=== PATIENT | female | born 1955 | race African-American/Black ===

== ENCOUNTER 2016-06-13 13:39 | Inpatient (IN) | payer OTHER ==
[~2016-06-13] VITALS: Ht 165.1 cm; Wt 111.1 kg
[2016-06-13] MEDS: SODIUM CHLORIDE 0.9% INJ 3ML FLUSH IVF SCH (01:20)
[~2016-06-13 13:39] MED LIST: ASPI-1035 PO; CIPR-263 PO; CLON0.2T PO; DIGO125T82 PO; FURO40TA5 PO; HYDR-4134 PO; ISOS30TA6 PO; LAMO100T PO; LISI1TAB11 PO; METO-298 PO; RISP3 PO
[2016-06-13] MEDS ORDERED: ONDANSETRON HCL 4MG/2ML VIAL IV STA (14:24)
[2016-06-13] MEDS ORDERED: ASPIRIN 81MG TABLET PO STA (14:24)
[2016-06-13] MEDS ORDERED: FUROSEMIDE 40MG/4ML VIAL IV STA (14:24)
[2016-06-13] MEDS ORDERED: MORPHINE SULFATE 4 MG/ML CPJ (NOT FOR IM USE) IV STA (14:24)
[2016-06-13 15:10] LABS: BASOPHILS % 0.5 % (0.0-2.0); EOSINOPHILS % 1.3 % (0.0-5.0); HEMATOCRIT. 46.3 % (36.0-48.0); HEMOGLOBIN. 14.9 g/dL (12.0-16.0); MEAN CORPUSCULAR HEMOGLOBIN 29.6 pg (28.0-32.0); MEAN CORPUSCULAR HGB CONC 32.1 g/dL (31.0-37.0); MEAN CORPUSCULAR VOLUME 92.3 fL (81.0-99.0); MEAN PLATELET VOLUME 9.3 fl (7.4-10.4); MONOCYTES % 12.6 % (2.0-8.0); NEUTROPHILS % 61.6 % (40.0-76.0); PLATELET 267 x1000/uL (130-400); RED BLOOD CELL COUNT 5.02 mill/uL (4.2-5.4); WHITE BLOOD COUNT 5.5 x1000/uL (4.5-11.0)
[2016-06-13 15:11] LABS: INR 1.2; PROTHROMBIN TIME 12.7 sec
[2016-06-13 15:12] LABS: ANION GAP 12; CARBON DIOXIDE 29 mEq/L (21-32); CHLORIDE 103 mEq/L (98-107); INDEX HEMOLYSI 1 (1-3); INDEX ICTERIC 1 (1-4); INDEX LIPEMIC 1 (1-3); UREA NITROGEN BLOOD 18 mg/dL (7-21)
[2016-06-13 15:20] LABS: ALANINE AMINOTRANSFERASE 66 IU/L (13-61); CREATINE KINASE 103 IU/L (26-192); LIPASE 106 IU/L (73-393); NT PRO B-TYPE NATRIURETIC PEP 3221 pg/mL (5-125); TROPONIN I 0.04 ng/mL (0.00-0.04); eGFR > 60 mL/min (>60)
[2016-06-13 15:25] LABS: THYROID STIMULATING HORMONE 0.85 uIU/mL (0.36-3.74)
[2016-06-13] MEDS ORDERED: PIPERACILLIN/TAZ 3.375G PREMIX 50 ML IV ONE (16:45)
[2016-06-13 17:40] VITALS: BP 119/84
[2016-06-13] MEDS ORDERED: CHOL100026 PO (19:03)
[2016-06-13] MEDS ORDERED: SERT25TA74 PO (19:03)
[2016-06-13 20:00] VITALS: BP_SYST 105; BP_DIAS 70; BP_DIAS 72
[2016-06-13] MEDS ORDERED: ONDANSETRON HCL 4MG/2ML VIAL IV PRN (20:45)
[2016-06-13] MEDS ORDERED: LORAZEPAM 2MG/ML CPJ IV PRN (20:45)
[2016-06-13] MEDS ORDERED: NA PHOS,M-B/NA PHOS,DI-BA ENEMA 118ML PR PRN (20:45)
[2016-06-13] MEDS ORDERED: HYDROCODONE/ACETAMINOPHEN 5/325MG TABLET PO PRN (20:45)
[2016-06-13] MEDS ORDERED: ACETAMINOPHEN 650MG SUPP PR PRN (20:45)
[2016-06-13] MEDS ORDERED: GUAIFENESIN 200MG/10ML SUGAR FREE UDC PO PRN (20:45)
[2016-06-13] MEDS ORDERED: MAGNESIUM/ALUMINUM HYDROXIDE/SIMETHICONE 30ML UDC PO PRN (20:45)
[2016-06-13] MEDS ORDERED: ACETAMINOPHEN 650MG/20.3ML UDC GT PRN (20:45)
[2016-06-13] MEDS ORDERED: DIPHENHYDRAMINE 50MG/ML VIAL IV PRN (20:45)
[2016-06-13] MEDS ORDERED: IPRATROPIUM/ALBUTEROL 0.5-3(2.5)MG/3ML NEB INH PRN (20:45)
[2016-06-13] MEDS ORDERED: ACETAMINOPHEN 325MG TABLET PO PRN (20:45)
[2016-06-13] MEDS ORDERED: CLONIDINE 0.1MG TABLET PO PRN (20:45)
[2016-06-13] MEDS: CLONIDINE 0.2MG TABLET PO SCH (21:47)
[2016-06-13] MEDS: ENOXAPARIN 30MG/0.3ML SYR SUBCUT SCH (21:47)
[2016-06-13 23:24] LABS: TROPONIN I 0.04 ng/mL (0.00-0.04)
[2016-06-13] MEDS ORDERED: DEXTROSE 50% WATER 50ML SYRINGE IV PRN (23:45)
[2016-06-14] VITALS: BP 113/78
[2016-06-14 04:00] VITALS: BP 120/75
[2016-06-14 04:56] LABS: CLARITY URINE CLEAR (CLEAR); COLOR URINE YELLOW (YELLOW); GLUCOSE URINE NEGATIVE (NEGATIVE); KETONES URINE NEGATIVE (NEGATIVE); LEUKOCYTE ESTERASE URINE TRACE (NEGATIVE); NITRITE URINE NEGATIVE (NEGATIVE); OCCULT BLOOD URINE 3+ (NEGATIVE); PROTEIN URINE 1+ (NEGATIVE); SPECIFIC GRAVITY URINE 1.014 (1.005-1.030)
[2016-06-14 05:45] LABS: *AMPHETAMINES SCREEN URINE NEGATIVE (NEGATIVE); *BARBITURATES SCREEN URINE NEGATIVE (NEGATIVE); *BENZODIAZEPINES SCREEN URINE NEGATIVE (NEGATIVE); *COCAINE SCREEN URINE NEGATIVE (NEGATIVE); CANNABINOID URINE SCREEN NEGATIVE (NEGATIVE); ECSTASY MDMA SCREEN URINE NEGATIVE (NEGATIVE); METHADONE URINE SCREEN NEGATIVE (NEGATIVE); OPIATES URINE SCREEN PRESUMTIVE POSITIVE (NEGATIVE); PHENCYCLIDINE URINE SCREEN NEGATIVE (NEGATIVE)
[2016-06-14] MEDS: BLOOD SUGAR DIAGNOSTIC STRIP TEST SCH ×4 (05:46→21:15)
[2016-06-14] MEDS: CLONIDINE 0.2MG TABLET PO SCH ×3 (05:50→21:16)
[2016-06-14 06:50] LABS: BASOPHILS % 0.5 % (0.0-2.0); EOSINOPHILS % 1.9 % (0.0-5.0); HEMATOCRIT. 45.4 % (36.0-48.0); HEMOGLOBIN. 14.4 g/dL (12.0-16.0); LYMPHOCYTES % 31.3 % (20.0-50.0); MEAN CORPUSCULAR HEMOGLOBIN 29.4 pg (28.0-32.0); MEAN CORPUSCULAR HGB CONC 31.8 g/dL (31.0-37.0); MEAN CORPUSCULAR VOLUME 92.4 fL (81.0-99.0); MEAN PLATELET VOLUME 9.3 fl (7.4-10.4); MONOCYTES % 13.7 % (2.0-8.0); NEUTROPHILS % 52.6 % (40.0-76.0); PLATELET 270 x1000/uL (130-400); RED BLOOD CELL COUNT 4.91 mill/uL (4.2-5.4); RED CELL DISTRIBUTION WIDTH 18.6 % (11.6-14.6); WHITE BLOOD COUNT 4.2 x1000/uL (4.5-11.0)
[2016-06-14 07:09] LABS: SQUAMOUS EPITHELIAL CELL URINE FEW /lpf (RARE/1+)
[2016-06-14 07:12] LABS: RBC URINE 15-25 /hpf (0-2)
[2016-06-14 07:17] LABS: WBC URINE 0-2 /hpf (0-2)
[2016-06-14 07:18] LABS: BACTERIA URINE TRACE; YEAST URINE 1+
[2016-06-14 08:00] VITALS: BP 106/65
[2016-06-14] MEDS: INSULIN LISPRO 100 UNITS/ML SUBCUT SCH ×4 (08:00→21:00)
[2016-06-14 08:10] LABS: ALANINE AMINOTRANSFERASE 62 IU/L (13-61); ALBUMIN 2.6 g/dL (3.4-5.0); ANION GAP 11; CALCIUM 8.5 mg/dL (8.5-10.1); CARBON DIOXIDE 29 mEq/L (21-32); CHLORIDE 105 mEq/L (98-107); CREATINE KINASE 54 IU/L (26-192); HDL CHOLESTEROL 38 mg/dL (40-59); INDEX HEMOLYSI 1 (1-3); INDEX ICTERIC 1 (1-4); INDEX LIPEMIC 1 (1-3); LDL CHOLESTEROL 119 mg/dL (5-100); TRIGLYCERIDE 83 mg/dL (0-150); UREA NITROGEN BLOOD 19 mg/dL (7-21); eGFR > 60 mL/min (>60)
[2016-06-14 08:13] LABS: TROPONIN I 0.04 ng/mL (0.00-0.04)
[2016-06-14] MEDS ORDERED: FUROSEMIDE 40MG/4ML VIAL IV SCH ×2 (09:00)
[2016-06-14] MEDS: ENOXAPARIN 30MG/0.3ML SYR SUBCUT SCH ×2 (09:12→21:14)
[2016-06-14] MEDS: SERTRALINE HCL 50MG TABLET PO SCH (09:13)
[2016-06-14] MEDS: ASPIRIN 81MG EC TABLET PO SCH (09:13)
[2016-06-14] MEDS: CHOLECALCIFEROL (D3) 1000 UNIT TABLET PO SCH (09:13)
[2016-06-14] MEDS: LAMOTRIGINE 100MG TABLET PO SCH ×2 (09:13→18:06)
[2016-06-14] MEDS: DIGOXIN 125MCG TABLET PO SCH (09:13)
[2016-06-14] MEDS: ISOSORBIDE DINITRATE 20MG TABLET PO SCH ×3 (09:14→18:06)
[2016-06-14] MEDS: FUROSEMIDE 40MG/4ML VIAL IVP SCH ×2 (10:00→18:06)
[2016-06-14 10:26] LABS: T4 FREE 1.25 ng/dL (0.76-1.46)
[2016-06-14 12:00] VITALS: BP 105/61
[2016-06-14] MEDS: SODIUM CHLORIDE 0.9% INJ 3ML FLUSH IVF SCH ×2 (13:00→21:16)
[2016-06-14 16:00] VITALS: BP 111/72
[2016-06-14] MEDS: LEVOFLOXACIN 750MG PREMIX 150 ML IV SCH (16:42)
[2016-06-14 17:18] LABS: CREATINE KINASE MB FRACTION 1.5 ng/mL (0.5-3.6); TROPONIN I 0.03 ng/mL (0.00-0.04)
[2016-06-14 20:00] VITALS: BP 127/66
[2016-06-14] MEDS: IPRATROPIUM/ALBUTEROL 0.5-3(2.5)MG/3ML NEB HHN SCH (20:54)
[2016-06-15] VITALS: BP 117/81
[2016-06-15] MEDS: IPRATROPIUM/ALBUTEROL 0.5-3(2.5)MG/3ML NEB HHN SCH ×4 (00:56→20:35)
[2016-06-15 02:19] LABS: CREATINE KINASE MB FRACTION 1.8 ng/mL (0.5-3.6); TROPONIN I 0.03 ng/mL (0.00-0.04)
[2016-06-15 04:00] VITALS: BP 96/64
[2016-06-15] MEDS: CLONIDINE 0.2MG TABLET PO SCH ×3 (06:00→22:00)
[2016-06-15] MEDS: SODIUM CHLORIDE 0.9% INJ 3ML FLUSH IVF SCH ×3 (06:21→21:08)
[2016-06-15] MEDS: FUROSEMIDE 40MG/4ML VIAL IVP SCH ×2 (06:54→18:52)
[2016-06-15] MEDS: BLOOD SUGAR DIAGNOSTIC STRIP TEST SCH ×4 (07:40→21:07)
[2016-06-15 08:00] VITALS: BP 114/71
[2016-06-15 09:21] LABS: CREATINE KINASE MB FRACTION 1.4 ng/mL (0.5-3.6); TROPONIN I 0.03 ng/mL (0.00-0.04)
[2016-06-15] MEDS: DIGOXIN 125MCG TABLET PO SCH (11:33)
[2016-06-15] MEDS: ASPIRIN 81MG EC TABLET PO SCH (11:33)
[2016-06-15] MEDS: CHOLECALCIFEROL (D3) 1000 UNIT TABLET PO SCH (11:33)
[2016-06-15] MEDS: ISOSORBIDE DINITRATE 20MG TABLET PO SCH ×3 (11:34→18:55)
[2016-06-15] MEDS: LAMOTRIGINE 100MG TABLET PO SCH ×2 (11:34→18:52)
[2016-06-15] MEDS: SERTRALINE HCL 50MG TABLET PO SCH (11:34)
[2016-06-15] MEDS: INSULIN LISPRO 100 UNITS/ML SUBCUT SCH ×4 (11:36→21:12)
[2016-06-15] MEDS: ENOXAPARIN 30MG/0.3ML SYR SUBCUT SCH ×2 (11:37→21:07)
[2016-06-15 12:00] VITALS: BP 106/106
[2016-06-15 15:36] LABS: BG BASE EXCESS 4.6 mmol/L (-2.0-2.0); BG CARBOXYHEMOGLOBIN 1.6 % (0.5-1.5); BG DEOXYHEMOGLOBIN 8.3 % (0.0-5.0); BG FRACTION INSPIRED OXYGEN 30; BG HCO3 ACT 30.3 mmol/L (22.0-26.0); BG METHEMOGLOBIN 0.3 % (0.0-1.5); BG OXYGEN SATURATION 91.5 % (92.0-98.5); BG OXYHEMOGLOBIN 89.8 % (94.0-97.0); BG PCO2 48.5 mmHg (35.0-45.0); BG PH 7.413 (7.350-7.450); BG PO2 63.3 mmHg (75.0-100.0); BG SAMPLE SITE RIGHT BRACHIAL; BG TOTAL HEMOGLOBIN 14.5 g/dL (12.0-18.0); BG VENT MODE NASAL CANNULA
[2016-06-15] MEDS: LEVOFLOXACIN 750MG PREMIX 150 ML IV SCH (15:36)
[2016-06-15 16:00] VITALS: BP 115/69
[2016-06-15 16:28] LABS: BASOPHILS % 0.2 % (0.0-2.0); HEMOGLOBIN. 13.6 g/dL (12.0-16.0); LYMPHOCYTES % 13.3 % (20.0-50.0); MEAN CORPUSCULAR HEMOGLOBIN 29.1 pg (28.0-32.0); MEAN CORPUSCULAR HGB CONC 31.6 g/dL (31.0-37.0); MEAN PLATELET VOLUME 9.6 fl (7.4-10.4); MONOCYTES % 12.2 % (2.0-8.0); NEUTROPHILS % 73.3 % (40.0-76.0); PLATELET 225 x1000/uL (130-400); RED BLOOD CELL COUNT 4.67 mill/uL (4.2-5.4); RED CELL DISTRIBUTION WIDTH 18.2 % (11.6-14.6); WHITE BLOOD COUNT 5.6 x1000/uL (4.5-11.0)
[2016-06-15] MEDS: CARVEDILOL 3.125 MG TABLET PO SCH (16:30)
[2016-06-15 16:42] LABS: ALBUMIN 2.6 g/dL (3.4-5.0); ANION GAP 12; CALCIUM 8.4 mg/dL (8.5-10.1); CARBON DIOXIDE 31 mEq/L (21-32); CHLORIDE 102 mEq/L (98-107); INDEX HEMOLYSI 1 (1-3); INDEX ICTERIC 1 (1-4); INDEX LIPEMIC 1 (1-3); UREA NITROGEN BLOOD 20 mg/dL (7-21)
[2016-06-15 16:46] LABS: ALANINE AMINOTRANSFERASE 43 IU/L (13-61); eGFR > 60 mL/min (>60)
[2016-06-15 20:00] VITALS: BP 98/66
[2016-06-16] VITALS: BP 106/60
[2016-06-16] MEDS: IPRATROPIUM/ALBUTEROL 0.5-3(2.5)MG/3ML NEB HHN SCH ×3 (02:41→15:11)
[2016-06-16 04:00] VITALS: BP 120/67
[2016-06-16] MEDS: CLONIDINE 0.2MG TABLET PO SCH ×2 (05:57→13:06)
[2016-06-16] MEDS: SODIUM CHLORIDE 0.9% INJ 3ML FLUSH IVF SCH ×2 (05:57→13:08)
[2016-06-16] MEDS: FUROSEMIDE 40MG/4ML VIAL IVP SCH ×2 (06:56→17:19)
[2016-06-16 08:00] VITALS: BP 126/80
[2016-06-16] MEDS: BLOOD SUGAR DIAGNOSTIC STRIP TEST SCH ×3 (08:12→17:25)
[2016-06-16] MEDS: CHOLECALCIFEROL (D3) 1000 UNIT TABLET PO SCH (08:28)
[2016-06-16] MEDS: CARVEDILOL 3.125 MG TABLET PO SCH (08:29)
[2016-06-16] MEDS: LAMOTRIGINE 100MG TABLET PO SCH ×2 (08:29→17:19)
[2016-06-16] MEDS: ASPIRIN 81MG EC TABLET PO SCH (08:29)
[2016-06-16] MEDS: SERTRALINE HCL 50MG TABLET PO SCH (08:29)
[2016-06-16] MEDS: DIGOXIN 125MCG TABLET PO SCH (08:29)
[2016-06-16] MEDS: INSULIN LISPRO 100 UNITS/ML SUBCUT SCH ×3 (08:31→18:33)
[2016-06-16] MEDS: ISOSORBIDE DINITRATE 20MG TABLET PO SCH ×3 (08:33→17:00)
[2016-06-16] MEDS: ENOXAPARIN 30MG/0.3ML SYR SUBCUT SCH (08:35)
[2016-06-16] MEDS ORDERED: LISINOPRIL 2.5MG TABLET PO SCH (09:00)
[2016-06-16 12:00] VITALS: BP 107/63
[2016-06-16] MEDS ORDERED: BISACODYL 5MG TABLET PO PRN (12:45)
[2016-06-16 16:00] VITALS: BP 101/62
[2016-06-16] MEDS: LEVOFLOXACIN 750MG PREMIX 150 ML IV SCH (17:18)
[2016-06-16] MEDS ORDERED: LISI2.5T47 PO (17:34)
[2016-06-16] MEDS ORDERED: ACET650S25 GT (17:34)
[2016-06-16] MEDS ORDERED: COR3 PO (17:34)
[2016-06-16 18:13] VITALS: BP 101/62
== END 2016-06-16 20:35 | disposition home or self-care (01) | DRG 194 ==
LOC: ER 13:54 → 7WST 16:12
PROVIDERS: ADMIT Family Medicine; ATTEND Family Medicine
DX: I11.0 Hypertensive heart disease with heart failure (principal); J96.01 Acute respiratory failure with hypoxia; I27.2 Other secondary pulmonary hypertension; E11.65 Type 2 diabetes mellitus with hyperglycemia; E44.1 Mild protein-calorie malnutrition; E66.2 Morbid (severe) obesity with alveolar hypoventilation; I50.43 Acute on chronic combined systolic (congestive) and diastolic (congestive) heart failure; I42.9 Cardiomyopathy, unspecified; F32.9 Major depressive disorder, single episode, unspecified; E78.5 Hyperlipidemia, unspecified; I25.10 Atherosclerotic heart disease of native coronary artery without angina pectoris; J45.909 Unspecified asthma, uncomplicated; Z68.36 Body mass index [BMI] 36.0-36.9, adult; Z99.81 Dependence on supplemental oxygen; I25.2 Old myocardial infarction; Z86.73 Personal history of transient ischemic attack (TIA), and cerebral infarction without residual deficits; Z91.14 Patient's other noncompliance with medication regimen
CPT/HCPCS: 36415; 36600; 51702; 71010; 80053; 80061; 80305; 81001; 82375; 82550; 82553; 82805; 82962; 83036; 83605; 83690; 83880; 84439; 84443; 84484; 85025; 85379; 85610; 87040; 87086; 87186; 93005; 93306; 93970; 94640; 96374; 96375; 99285; J1650; J1815; J1940; J1956; J2270; J2405; J2543; J7050; J7620; A4315

== ENCOUNTER 2016-06-18 04:04 | Inpatient (IN) | payer MEDICAID, OTHER ==
[~2016-06-18] VITALS: Ht 162.6 cm; Wt 104.8 kg
[2016-06-18] VITALS (10 sets, daily range): BP systolic 122–145; BP diastolic 69–93
[~2016-06-18 04:04] MED LIST changes: +ACET650S25 GT; +CHOL100026 PO; -CIPR-263 PO; -CLON0.2T PO; +COR3 PO; -HYDR-4134 PO; -LISI1TAB11 PO; +LISI2.5T47 PO; -METO-298 PO; +SERT25TA74 PO
[2016-06-18] MEDS ORDERED: ASPIRIN 81MG TABLET PO STA (04:06)
[2016-06-18] MEDS ORDERED: ALBUTEROL (0.083%) 2.5MG/3ML NEB HHN STA (04:06)
[2016-06-18] MEDS ORDERED: ENALAPRIL 2.5MG/2ML VIAL 2ML IV STA (04:06)
[2016-06-18] MEDS ORDERED: NITROGLYCERIN OINT 1GM/INCH UDPKT TD STA (04:06)
[2016-06-18] MEDS ORDERED: FUROSEMIDE 40MG/4ML VIAL IV STA (04:06)
[2016-06-18] MEDS ORDERED: IPRATROPIUM BROMIDE (0.02%) 0.5MG/2.5ML NEB HHN STA (04:06)
[2016-06-18 04:25] LABS: BASOPHILS % 0.8 % (0.0-2.0); HEMATOCRIT. 45.9 % (36.0-48.0); HEMOGLOBIN. 14.8 g/dL (12.0-16.0); LYMPHOCYTES % 23.8 % (20.0-50.0); MEAN CORPUSCULAR HEMOGLOBIN 29.4 pg (28.0-32.0); MEAN CORPUSCULAR HGB CONC 32.1 g/dL (31.0-37.0); MEAN CORPUSCULAR VOLUME 91.5 fL (81.0-99.0); MEAN PLATELET VOLUME 9.3 fl (7.4-10.4); MONOCYTES % 11.6 % (2.0-8.0); NEUTROPHILS % 61.8 % (40.0-76.0); PLATELET 240 x1000/uL (130-400); RED BLOOD CELL COUNT 5.02 mill/uL (4.2-5.4); RED CELL DISTRIBUTION WIDTH 18.5 % (11.6-14.6); WHITE BLOOD COUNT 4.4 x1000/uL (4.5-11.0)
[2016-06-18 04:27] LABS: CHLORIDE 101 mEq/L (98-107)
[2016-06-18 04:33] LABS: ALBUMIN 3.1 g/dL (3.4-5.0); ANION GAP 12; CARBON DIOXIDE 30 mEq/L (21-32); INDEX HEMOLYSI 1 (1-3); INDEX ICTERIC 1 (1-4); INDEX LIPEMIC 1 (1-3); UREA NITROGEN BLOOD 12 mg/dL (7-21)
[2016-06-18 04:37] LABS: ALANINE AMINOTRANSFERASE 41 IU/L (13-61); eGFR > 60 mL/min (>60)
[2016-06-18 04:44] LABS: NT PRO B-TYPE NATRIURETIC PEP 4908 pg/mL (5-125)
[2016-06-18 04:45] LABS: TROPONIN I 0.04 ng/mL (0.00-0.04)
[2016-06-18 05:01] LABS: INR 1.1; PARTIAL THROMBOPLASTIN TIME 27.8 sec (24.0-34.0); PROTHROMBIN TIME 11.9 sec
[2016-06-18 05:49] LABS: BG BASE EXCESS 4.5 mmol/L (-2.0-2.0); BG BILEVEL POS AIRWAY PRESSURE 18/5; BG CARBOXYHEMOGLOBIN 2.1 % (0.5-1.5); BG DEOXYHEMOGLOBIN 0.6 % (0.0-5.0); BG FRACTION INSPIRED OXYGEN 60; BG HCO3 ACT 30.3 mmol/L (22.0-26.0); BG METHEMOGLOBIN 0.4 % (0.0-1.5); BG OXYGEN SATURATION 99.4 % (92.0-98.5); BG OXYHEMOGLOBIN 96.9 % (94.0-97.0); BG PCO2 49.3 mmHg (35.0-45.0); BG PH 7.406 (7.350-7.450); BG PO2 173.3 mmHg (75.0-100.0); BG SAMPLE SITE RIGHT RADIAL; BG TOTAL HEMOGLOBIN 15.1 g/dL (12.0-18.0); BG VENT MODE MASK - BIPAP; BG VENT RATE 16 set
[2016-06-18] MEDS ORDERED: KETOROLAC 30MG/ML VIAL IV PRN (10:15)
[2016-06-18] MEDS ORDERED: DOCUSATE SODIUM 100MG CAPSULE PO PRN ×2 (10:15)
[2016-06-18] MEDS ORDERED: ENOXAPARIN 40MG/0.4ML SYR SUBCUT SCH (10:15)
[2016-06-18] MEDS ORDERED: NITROGLYCERIN 0.4MG TABLET SL SL PRN (10:15)
[2016-06-18] MEDS ORDERED: FUROSEMIDE 40MG/4ML VIAL IVP SCH (10:15)
[2016-06-18] MEDS ORDERED: TRAMADOL 50MG TABLET PO PRN (10:15)
[2016-06-18] MEDS ORDERED: IPRATROPIUM/ALBUTEROL 0.5-3(2.5)MG/3ML NEB HHN PRN (10:15)
[2016-06-18] MEDS ORDERED: NA PHOS,M-B/NA PHOS,DI-BA ENEMA 118ML PR PRN (10:15)
[2016-06-18] MEDS ORDERED: ONDANSETRON HCL 4MG/2ML VIAL IV PRN ×2 (10:15)
[2016-06-18] MEDS ORDERED: CLONIDINE 0.1MG TABLET PO PRN (10:15)
[2016-06-18] MEDS ORDERED: LORAZEPAM 2MG/ML CPJ IV PRN (10:15)
[2016-06-18] MEDS ORDERED: ACETAMINOPHEN 325MG TABLET PO PRN ×2 (10:15)
[2016-06-18] MEDS ORDERED: DEXTROSE 50% WATER 50ML SYRINGE IV PRN (11:15)
[2016-06-18] MEDS: ENOXAPARIN 40MG/0.4ML SYR SUBCUT SCH (11:23)
[2016-06-18] MEDS: BLOOD SUGAR DIAGNOSTIC STRIP TEST SCH ×3 (11:30→20:57)
[2016-06-18] MEDS ORDERED: LEVOFLOXACIN 500MG PREMIX 100 ML IV SCH (11:30)
[2016-06-18] MEDS: METHYLPREDNISOLONE SOD SUCC 40 MG/ML VIAL IV SCH ×2 (11:31→20:55)
[2016-06-18] MEDS: INSULIN LISPRO 100 UNITS/ML SUBCUT SCH ×3 (11:32→20:56)
[2016-06-18 12:55] LABS: CLARITY URINE CLOUDY (CLEAR); COLOR URINE DARK YELLOW (YELLOW); GLUCOSE URINE NEGATIVE (NEGATIVE); KETONES URINE NEGATIVE (NEGATIVE); LEUKOCYTE ESTERASE URINE TRACE (NEGATIVE); NITRITE URINE NEGATIVE (NEGATIVE); OCCULT BLOOD URINE 2+ (NEGATIVE); PH URINE 5.5 (4.5-8.0); PROTEIN URINE 2+ (NEGATIVE); SPECIFIC GRAVITY URINE 1.021 (1.005-1.030)
[2016-06-18 13:08] LABS: *AMPHETAMINES SCREEN URINE NEGATIVE (NEGATIVE); *BARBITURATES SCREEN URINE NEGATIVE (NEGATIVE); *BENZODIAZEPINES SCREEN URINE NEGATIVE (NEGATIVE); *COCAINE SCREEN URINE NEGATIVE (NEGATIVE); CANNABINOID URINE SCREEN NEGATIVE (NEGATIVE); ECSTASY MDMA SCREEN URINE NEGATIVE (NEGATIVE); METHADONE URINE SCREEN NEGATIVE (NEGATIVE); OPIATES URINE SCREEN PRESUMTIVE POSITIVE (NEGATIVE); PHENCYCLIDINE URINE SCREEN NEGATIVE (NEGATIVE)
[2016-06-18 13:11] LABS: BACTERIA URINE 3+; SQUAMOUS EPITHELIAL CELL URINE 2+ /lpf (RARE/1+)
[2016-06-18 13:12] LABS: RBC URINE 15-25 /hpf (0-2)
[2016-06-18 13:14] LABS: YEAST URINE FEW
[2016-06-18] MEDS ORDERED: AMLODIPINE 10MG TABLET PO NR (13:45)
[2016-06-18 16:01] LABS: CREATINE KINASE MB FRACTION 1.8 ng/mL (0.5-3.6); TROPONIN I 0.06 ng/mL (0.00-0.04)
[2016-06-18] MEDS: IPRATROPIUM/ALBUTEROL 0.5-3(2.5)MG/3ML NEB HHN SCH ×3 (16:11→21:17)
[2016-06-18] MEDS: BUDESONIDE 0.5MG/2ML NEB HHN SCH ×2 (16:45→21:17)
[2016-06-18] MEDS ORDERED: FUROSEMIDE 40MG/4ML VIAL IVP NR (17:00)
[2016-06-18] MEDS: SPIRONOLACTONE 25MG TABLET PO SCH (17:42)
[2016-06-18] MEDS: CEFTRIAXONE 1 G PREMIX 50 ML IV SCH (17:43)
[2016-06-18] MEDS: LISINOPRIL 20MG TABLET PO SCH (20:57)
[2016-06-18] MEDS: ASCORBIC ACID 500 MG TABLET PO SCH (20:57)
[2016-06-18] MEDS ORDERED: ZOLPIDEM TARTRATE 5MG TABLET PO PRN (21:00)
[2016-06-19] VITALS (12 sets, daily range): BP systolic 113–149; BP diastolic 33–91
[2016-06-19 00:24] LABS: CREATINE KINASE MB FRACTION 1.5 ng/mL (0.5-3.6); TROPONIN I 0.04 ng/mL (0.00-0.04)
[2016-06-19] MEDS: IPRATROPIUM/ALBUTEROL 0.5-3(2.5)MG/3ML NEB HHN SCH ×6 (00:58→21:09)
[2016-06-19] MEDS: METHYLPREDNISOLONE SOD SUCC 40 MG/ML VIAL IV SCH (04:58)
[2016-06-19] MEDS: SPIRONOLACTONE 25MG TABLET PO SCH ×2 (05:03→18:07)
[2016-06-19] MEDS: BLOOD SUGAR DIAGNOSTIC STRIP TEST SCH ×4 (07:30→20:58)
[2016-06-19] MEDS: BUDESONIDE 0.5MG/2ML NEB HHN SCH ×2 (07:43→21:09)
[2016-06-19] MEDS: INSULIN LISPRO 100 UNITS/ML SUBCUT SCH ×4 (08:22→21:05)
[2016-06-19] MEDS: ZINC SULFATE 220 MG ( 50 ) CAPSULE PO SCH (08:23)
[2016-06-19] MEDS: PANTOPRAZOLE SODIUM 40 MG/VIAL IV SCH (08:23)
[2016-06-19] MEDS: FUROSEMIDE 40MG/4ML VIAL IVP SCH (08:23)
[2016-06-19] MEDS: ASCORBIC ACID 500 MG TABLET PO SCH ×2 (08:23→21:06)
[2016-06-19] MEDS: LISINOPRIL 20MG TABLET PO SCH ×2 (08:25→21:09)
[2016-06-19] MEDS: AMLODIPINE 10MG TABLET PO SCH (10:35)
[2016-06-19] MEDS: ENOXAPARIN 40MG/0.4ML SYR SUBCUT SCH (10:36)
[2016-06-19] MEDS: CEFTRIAXONE 1 G PREMIX 50 ML IV SCH (15:53)
[2016-06-19] MEDS: PREDNISONE 20MG TABLET PO SCH (18:07)
[2016-06-20] VITALS (9 sets, daily range): BP systolic 125–147; BP diastolic 41–91
[2016-06-20] MEDS: IPRATROPIUM/ALBUTEROL 0.5-3(2.5)MG/3ML NEB HHN SCH ×4 (00:38→12:07)
[2016-06-20] MEDS: SPIRONOLACTONE 25MG TABLET PO SCH (06:24)
[2016-06-20] MEDS: BLOOD SUGAR DIAGNOSTIC STRIP TEST SCH ×2 (08:23→12:06)
[2016-06-20] MEDS: AMLODIPINE 10MG TABLET PO SCH (08:40)
[2016-06-20] MEDS: LISINOPRIL 20MG TABLET PO SCH (08:40)
[2016-06-20] MEDS: PANTOPRAZOLE SODIUM 40 MG/VIAL IV SCH (08:40)
[2016-06-20] MEDS: ASCORBIC ACID 500 MG TABLET PO SCH (08:40)
[2016-06-20] MEDS: PREDNISONE 20MG TABLET PO SCH (08:40)
[2016-06-20] MEDS: FUROSEMIDE 40MG/4ML VIAL IVP SCH (08:40)
[2016-06-20] MEDS: ENOXAPARIN 40MG/0.4ML SYR SUBCUT SCH (08:42)
[2016-06-20] MEDS: INSULIN LISPRO 100 UNITS/ML SUBCUT SCH ×2 (08:42→13:33)
[2016-06-20] MEDS: BUDESONIDE 0.5MG/2ML NEB HHN SCH (09:17)
[2016-06-20] MEDS: ZINC SULFATE 220 MG ( 50 ) CAPSULE PO SCH (10:12)
== END 2016-06-20 15:20 | disposition home or self-care (01) | DRG 194 ==
LOC: ER 04:12 → 5EST 04:13
PROVIDERS: ADMIT Internal Medicine; ATTEND Internal Medicine
PROC: 5A09357 Assistance with Respiratory Ventilation, Less than 24 Consecutive Hours, Continuous Positive Airway Pressure (ICD-10-PCS; principal; 2016-06-18)
DX: I50.43 Acute on chronic combined systolic (congestive) and diastolic (congestive) heart failure (principal); J96.00 Acute respiratory failure, unspecified whether with hypoxia or hypercapnia; I27.2 Other secondary pulmonary hypertension; E44.1 Mild protein-calorie malnutrition; J44.1 Chronic obstructive pulmonary disease with (acute) exacerbation; I27.81 Cor pulmonale (chronic); N39.0 Urinary tract infection, site not specified; I42.9 Cardiomyopathy, unspecified; E66.9 Obesity, unspecified; E11.9 Type 2 diabetes mellitus without complications; F17.210 Nicotine dependence, cigarettes, uncomplicated; I11.0 Hypertensive heart disease with heart failure; J45.909 Unspecified asthma, uncomplicated; Z79.4 Long term (current) use of insulin; Z79.82 Long term (current) use of aspirin; Z79.899 Other long term (current) drug therapy; Z82.49 Family history of ischemic heart disease and other diseases of the circulatory system; Z68.39 Body mass index [BMI] 39.0-39.9, adult
CPT/HCPCS: 36415; 36600; 71010; 80053; 80061; 80305; 81001; 82375; 82550; 82553; 82805; 82962; 83036; 83880; 84484; 85025; 85610; 85730; 93005; 93306; 93970; 94640; 94660; 94664; 96374; 96375; 97162; 99291; C9113; J0696; J1650; J1815; J1940; J1956; J2920; J3490; J7050; J7512; J7611; J7620; J7626

== ENCOUNTER 2018-01-19 15:52 | Inpatient (IN) | payer OTHER ==
[~2018-01-19] VITALS: Ht 160 cm; Wt 90.7 kg
[~2018-01-19 15:52] MED LIST changes: +ALBU18HF2 IH; +AMLO10TA80 PO; -ASPI-1035 PO; +ASPI-1159 PO; -CHOL100026 PO; +CHOL100044 PO; +DOCU-138 PO; +FLUT1DIS3 IH; +LEVO500T2 PO; +METF-414 PO; +POTA-79 PO; +SPIR25TA PO
[2018-01-19] MEDS ORDERED: METHYLPREDNISOLONE SOD SUCC 125 MG/2 ML VIAL IV STA (16:04)
[2018-01-19] MEDS ORDERED: MAGNESIUM 2 G PREMIX 50 ML IV ONE (16:15)
[2018-01-19] MEDS ORDERED: LEVOFLOXACIN 750MG PREMIX 150 ML IV ONE (16:15)
[2018-01-19] MEDS ORDERED: IPRATROPIUM/ALBUTEROL 0.5-3(2.5)MG/3ML NEB HHN ONE (16:15)
[2018-01-19 16:30] LABS: BG BASE EXCESS 4.6 mmol/L (-2.0-2.0); BG CARBOXYHEMOGLOBIN 1.8 % (0.5-1.5); BG DEOXYHEMOGLOBIN 26.8 % (0.0-5.0); BG FRACTION INSPIRED OXYGEN 21; BG METHEMOGLOBIN 0.3 % (0.0-1.5); BG OXYGEN SATURATION 72.6 % (92.0-98.5); BG OXYHEMOGLOBIN 71.1 % (94.0-97.0); BG PCO2 47.3 mmHg (35.0-45.0); BG PO2 38.7 mmHg (75.0-100.0); BG SAMPLE SITE RIGHT BRACHIAL; BG TOTAL HEMOGLOBIN 14.6 g/dL (12.0-18.0); BG VENT MODE ROOM AIR
[2018-01-19 17:48] LABS: BASOPHILS % 0.7 % (0.0-2.0); EOSINOPHILS % 0.5 % (0.0-5.0); HEMATOCRIT. 42.3 % (36.0-48.0); HEMOGLOBIN. 13.7 g/dL (12.0-16.0); LYMPHOCYTES % 7.1 % (20.0-50.0); MEAN CORPUSCULAR HEMOGLOBIN 29.2 pg (28.0-32.0); MEAN CORPUSCULAR VOLUME 90.4 fL (81.0-99.0); MEAN PLATELET VOLUME 10.2 fl (7.4-10.4); MONOCYTES % 9.9 % (2.0-8.0); NEUTROPHILS % 81.8 % (40.0-76.0); PLATELET 228 x1000/uL (130-400); RED BLOOD CELL COUNT 4.68 mill/uL (4.2-5.4); RED CELL DISTRIBUTION WIDTH 22.1 % (11.6-14.6)
[2018-01-19 17:54] LABS: CHLORIDE 104 mEq/L (98-107)
[2018-01-19 17:59] LABS: INR 1.3; PARTIAL THROMBOPLASTIN TIME 27.4 sec (23.4-31.0); PROTHROMBIN TIME 12.6 sec (9.1-11.1)
[2018-01-19 18:00] LABS: ETHANOL BLOOD < 10 mg/dL
[2018-01-19] MEDS ORDERED: ASPIRIN 325MG EC TABLET PO ONE (18:30)
[2018-01-19] MEDS ORDERED: FUROSEMIDE 20MG/2ML VIAL IVP ONE (18:30)
[2018-01-19 18:36] LABS: PLATELET ESTIMATE NORMAL
[2018-01-19 20:00] VITALS: BP 122/64
[2018-01-19 20:51] LABS: CANNABINOID URINE SCREEN NEGATIVE (NEGATIVE); OPIATES URINE SCREEN NEGATIVE (NEGATIVE); PHENCYCLIDINE URINE SCREEN NEGATIVE (NEGATIVE)
[2018-01-19 20:52] LABS: *AMPHETAMINES SCREEN URINE NEGATIVE (NEGATIVE); *BARBITURATES SCREEN URINE NEGATIVE (NEGATIVE); *BENZODIAZEPINES SCREEN URINE NEGATIVE (NEGATIVE); *COCAINE SCREEN URINE NEGATIVE (NEGATIVE); METHADONE URINE SCREEN NEGATIVE (NEGATIVE)
[2018-01-19 23:10] VITALS: BP 118/90
[2018-01-19] MEDS ORDERED: MEDICATION NOT ON FORMULARY EA (Metformin Hcl 1 TAB) PO SCH (23:45)
[2018-01-20] VITALS: BP 122/64
[2018-01-20] MEDS ORDERED: IPRATROPIUM/ALBUTEROL 0.5-3(2.5)MG/3ML NEB HHN PRN (00:15)
[2018-01-20] MEDS ORDERED: DEXTROSE 50% WATER 50ML SYRINGE IV PRN (00:15)
[2018-01-20] MEDS ORDERED: MEDICATION NOT ON FORMULARY EA (Docusate Sodium (Colace) 1 CAP) PO SCH (00:45)
[2018-01-20] MEDS: METHYLPREDNISOLONE SOD SUCC 40 MG/ML VIAL IV SCH ×3 (01:24→19:33)
[2018-01-20 04:00] VITALS: BP_SYST 121; BP_SYST 127; BP_DIAS 70; BP_DIAS 72
[2018-01-20] MEDS: BLOOD SUGAR DIAGNOSTIC STRIP TEST SCH ×4 (06:46→21:02)
[2018-01-20] MEDS: FUROSEMIDE 40MG/4ML VIAL IVP SCH ×2 (06:57→19:34)
[2018-01-20] MEDS: INSULIN LISPRO 100 UNITS/ML SUBCUT SCH ×4 (07:04→21:34)
[2018-01-20 08:00] VITALS: BP 115/69
[2018-01-20] MEDS ORDERED: ALBUTEROL 6.7GM HFA INHALER INH SCH (09:00)
[2018-01-20] MEDS ORDERED: LEVOFLOXACIN 500MG TABLET PO SCH (09:00)
[2018-01-20] MEDS: DOCUSATE SODIUM 100MG CAPSULE PO SCH ×2 (09:38→19:34)
[2018-01-20] MEDS: METFORMIN HCL 500MG TABLET PO SCH ×2 (09:38→19:34)
[2018-01-20] MEDS: SPIRONOLACTONE 25MG TABLET PO SCH (09:39)
[2018-01-20] MEDS: LISINOPRIL 5MG TABLET PO SCH (09:39)
[2018-01-20] MEDS: CHOLECALCIFEROL (D3) 1000 UNIT TABLET PO SCH (09:40)
[2018-01-20] MEDS: CARVEDILOL 3.125 MG TABLET PO SCH ×2 (09:40→21:02)
[2018-01-20] MEDS: LAMOTRIGINE 100MG TABLET PO SCH ×2 (09:40→19:33)
[2018-01-20] MEDS: AMLODIPINE 10MG TABLET PO SCH (09:40)
[2018-01-20] MEDS: ASPIRIN 81MG TABLET PO SCH (09:41)
[2018-01-20] MEDS: IPRATROPIUM/ALBUTEROL 0.5-3(2.5)MG/3ML NEB HHN SCH ×4 (09:56→21:21)
[2018-01-20 12:00] VITALS: BP 118/72
[2018-01-20 16:00] VITALS: BP 117/70
[2018-01-20] MEDS: DIGOXIN 125MCG TABLET PO SCH (19:34)
[2018-01-20 20:00] VITALS: BP 112/58
[2018-01-20] MEDS ORDERED: RISPERIDONE 3 MG PO SCH (21:00)
[2018-01-20] MEDS: RISPERIDONE 1MG TABLET PO SCH (21:01)
[2018-01-21] VITALS: BP 130/64
[2018-01-21] MEDS: IPRATROPIUM/ALBUTEROL 0.5-3(2.5)MG/3ML NEB HHN SCH ×6 (01:12→20:35)
[2018-01-21] MEDS: METHYLPREDNISOLONE SOD SUCC 40 MG/ML VIAL IV SCH ×3 (02:18→17:04)
[2018-01-21 04:00] VITALS: BP 127/70
[2018-01-21] MEDS: FUROSEMIDE 40MG/4ML VIAL IVP SCH ×2 (05:51→17:04)
[2018-01-21] MEDS: BLOOD SUGAR DIAGNOSTIC STRIP TEST SCH ×4 (05:55→21:12)
[2018-01-21] MEDS: INSULIN LISPRO 100 UNITS/ML SUBCUT SCH ×4 (06:43→21:40)
[2018-01-21 07:38] LABS: HEMATOCRIT. 44.6 % (36.0-48.0); HEMOGLOBIN. 14.6 g/dL (12.0-16.0); MEAN CORPUSCULAR HEMOGLOBIN 29.3 pg (28.0-32.0); MEAN CORPUSCULAR VOLUME 89.8 fL (81.0-99.0); MEAN PLATELET VOLUME 9.9 fl (7.4-10.4); PLATELET 226 x1000/uL (130-400); RED BLOOD CELL COUNT 4.97 mill/uL (4.2-5.4); RED CELL DISTRIBUTION WIDTH 22.6 % (11.6-14.6)
[2018-01-21 08:00] VITALS: BP 136/79
[2018-01-21] MEDS: METFORMIN HCL 500MG TABLET PO SCH (08:02)
[2018-01-21] MEDS: ASPIRIN 81MG TABLET PO SCH (09:44)
[2018-01-21] MEDS: DOCUSATE SODIUM 100MG CAPSULE PO SCH ×2 (09:44→17:04)
[2018-01-21] MEDS: CHOLECALCIFEROL (D3) 1000 UNIT TABLET PO SCH (09:45)
[2018-01-21] MEDS: LAMOTRIGINE 100MG TABLET PO SCH ×2 (09:45→17:04)
[2018-01-21] MEDS: AMLODIPINE 10MG TABLET PO SCH (09:45)
[2018-01-21] MEDS: SPIRONOLACTONE 25MG TABLET PO SCH (09:45)
[2018-01-21] MEDS: ENOXAPARIN 30MG/0.3ML SYR SUBCUT SCH ×2 (09:46→21:12)
[2018-01-21] MEDS: LISINOPRIL 5MG TABLET PO SCH (09:46)
[2018-01-21] MEDS: CARVEDILOL 3.125 MG TABLET PO SCH ×2 (09:46→21:11)
[2018-01-21 12:03] VITALS: BP 113/62
[2018-01-21 13:13] LABS: PLATELET ESTIMATE NORMAL
[2018-01-21 16:00] VITALS: BP 113/63
[2018-01-21] MEDS: DIGOXIN 125MCG TABLET PO SCH (17:04)
[2018-01-21 20:00] VITALS: BP 128/67
[2018-01-21] MEDS: RISPERIDONE 1MG TABLET PO SCH (21:12)
[2018-01-21] MEDS: INSULIN GLARGINE UD 100 UNITS/ML SYR SUBCUT SCH (21:40)
[2018-01-22] VITALS: BP 123/65
[2018-01-22] MEDS: IPRATROPIUM/ALBUTEROL 0.5-3(2.5)MG/3ML NEB HHN SCH ×7 (00:33→21:19)
[2018-01-22] MEDS: METHYLPREDNISOLONE SOD SUCC 40 MG/ML VIAL IV SCH ×2 (03:23→10:59)
[2018-01-22 04:00] VITALS: BP 121/65
[2018-01-22] MEDS: FUROSEMIDE 40MG/4ML VIAL IVP SCH (06:44)
[2018-01-22] MEDS: BLOOD SUGAR DIAGNOSTIC STRIP TEST SCH ×4 (06:44→21:00)
[2018-01-22] MEDS: INSULIN LISPRO 100 UNITS/ML SUBCUT SCH ×4 (06:59→22:45)
[2018-01-22 07:09] LABS: HEMATOCRIT. 43.2 % (36.0-48.0); HEMOGLOBIN. 14.2 g/dL (12.0-16.0); MEAN CORPUSCULAR HEMOGLOBIN 29.5 pg (28.0-32.0); MEAN CORPUSCULAR VOLUME 89.7 fL (81.0-99.0); MEAN PLATELET VOLUME 10.3 fl (7.4-10.4); PLATELET 223 x1000/uL (130-400); RED BLOOD CELL COUNT 4.82 mill/uL (4.2-5.4); RED CELL DISTRIBUTION WIDTH 22.4 % (11.6-14.6)
[2018-01-22 08:00] VITALS: BP 114/67
[2018-01-22] MEDS: AMLODIPINE 10MG TABLET PO SCH (09:14)
[2018-01-22] MEDS: ENOXAPARIN 30MG/0.3ML SYR SUBCUT SCH ×2 (09:14→22:43)
[2018-01-22] MEDS: DOCUSATE SODIUM 100MG CAPSULE PO SCH ×2 (09:15→17:00)
[2018-01-22] MEDS: SPIRONOLACTONE 25MG TABLET PO SCH (09:15)
[2018-01-22] MEDS: ASPIRIN 81MG TABLET PO SCH (09:15)
[2018-01-22] MEDS: LAMOTRIGINE 100MG TABLET PO SCH ×2 (09:15→17:00)
[2018-01-22] MEDS: CARVEDILOL 3.125 MG TABLET PO SCH ×2 (09:15→22:42)
[2018-01-22] MEDS: CHOLECALCIFEROL (D3) 1000 UNIT TABLET PO SCH (09:15)
[2018-01-22] MEDS: INSULIN GLARGINE UD 100 UNITS/ML SYR SUBCUT SCH ×2 (11:00→22:44)
[2018-01-22 11:40] LABS: BG BASE EXCESS 3.4 mmol/L (-2.0-2.0); BG CARBOXYHEMOGLOBIN 1.2 % (0.5-1.5); BG METHEMOGLOBIN 0.5 % (0.0-1.5); BG OXYGEN SATURATION 89.8 % (92.0-98.5); BG OXYHEMOGLOBIN 88.3 % (94.0-97.0); BG PCO2 53.9 mmHg (35.0-45.0); BG PH 7.364 (7.350-7.450); BG PO2 62.5 mmHg (75.0-100.0); BG SAMPLE SITE RIGHT RADIAL; BG TOTAL HEMOGLOBIN 14.6 g/dL (12.0-18.0); BG VENT MODE MASK - VENTI
[2018-01-22] MEDS: PREDNISONE 20MG TABLET PO SCH (12:54)
[2018-01-22 13:19] VITALS: BP 114/64
[2018-01-22 16:04] VITALS: BP 114/64
[2018-01-22] MEDS: DIGOXIN 125MCG TABLET PO SCH (18:00)
[2018-01-22 20:00] VITALS: BP 140/77
[2018-01-22] MEDS ORDERED: FUROSEMIDE 40MG/4ML VIAL IVP NR (22:15)
[2018-01-22] MEDS: RISPERIDONE 1MG TABLET PO SCH (22:42)
[2018-01-23] VITALS: BP 131/66
[2018-01-23] MEDS: IPRATROPIUM/ALBUTEROL 0.5-3(2.5)MG/3ML NEB HHN SCH ×6 (00:09→20:19)
[2018-01-23 04:00] VITALS: BP 138/63
[2018-01-23] MEDS: BLOOD SUGAR DIAGNOSTIC STRIP TEST SCH ×4 (05:56→21:26)
[2018-01-23] MEDS: INSULIN LISPRO 100 UNITS/ML SUBCUT SCH ×4 (06:04→21:29)
[2018-01-23 08:00] VITALS: BP 150/82
[2018-01-23 08:26] LABS: BASOPHILS % 0.1 % (0.0-2.0); HEMATOCRIT. 47.9 % (36.0-48.0); HEMOGLOBIN. 15.5 g/dL (12.0-16.0); LYMPHOCYTES % 10.2 % (20.0-50.0); MEAN CORPUSCULAR VOLUME 89.3 fL (81.0-99.0); MEAN PLATELET VOLUME 10.2 fl (7.4-10.4); MONOCYTES % 6.9 % (2.0-8.0); NEUTROPHILS % 82.8 % (40.0-76.0); PLATELET 236 x1000/uL (130-400); RED BLOOD CELL COUNT 5.36 mill/uL (4.2-5.4)
[2018-01-23 08:36] LABS: PLATELET ESTIMATE NORMAL
[2018-01-23] MEDS: DOCUSATE SODIUM 100MG CAPSULE PO SCH ×2 (08:48→16:52)
[2018-01-23] MEDS: ENOXAPARIN 30MG/0.3ML SYR SUBCUT SCH ×2 (08:48→21:27)
[2018-01-23] MEDS: CARVEDILOL 3.125 MG TABLET PO SCH ×2 (08:48→21:27)
[2018-01-23] MEDS: CHOLECALCIFEROL (D3) 1000 UNIT TABLET PO SCH (08:49)
[2018-01-23] MEDS: AMLODIPINE 10MG TABLET PO SCH (08:49)
[2018-01-23] MEDS: LAMOTRIGINE 100MG TABLET PO SCH ×2 (08:49→16:52)
[2018-01-23] MEDS: ASPIRIN 81MG TABLET PO SCH (08:49)
[2018-01-23] MEDS: PREDNISONE 20MG TABLET PO SCH (08:49)
[2018-01-23] MEDS: SPIRONOLACTONE 25MG TABLET PO SCH (08:49)
[2018-01-23] MEDS: FUROSEMIDE 40MG/4ML VIAL IVP SCH (10:24)
[2018-01-23] MEDS: INSULIN GLARGINE UD 100 UNITS/ML SYR SUBCUT SCH ×2 (10:26→21:28)
[2018-01-23 12:00] VITALS: BP 118/53
[2018-01-23 16:00] VITALS: BP_SYST 114; BP_DIAS 95; BP_DIAS 97
[2018-01-23] MEDS: DIGOXIN 125MCG TABLET PO SCH (17:15)
[2018-01-23 20:00] VITALS: BP 129/68
[2018-01-23] MEDS: RISPERIDONE 1MG TABLET PO SCH (21:31)
[2018-01-24] VITALS: BP 139/61
[2018-01-24] MEDS: IPRATROPIUM/ALBUTEROL 0.5-3(2.5)MG/3ML NEB HHN SCH ×5 (01:10→21:27)
[2018-01-24 04:00] VITALS: BP 122/80
[2018-01-24] MEDS: BLOOD SUGAR DIAGNOSTIC STRIP TEST SCH ×4 (05:53→21:00)
[2018-01-24] MEDS: INSULIN LISPRO 100 UNITS/ML SUBCUT SCH ×4 (05:53→22:43)
[2018-01-24 08:00] VITALS: BP 139/69
[2018-01-24] MEDS: INSULIN GLARGINE UD 100 UNITS/ML SYR SUBCUT SCH ×2 (10:58→22:44)
[2018-01-24] MEDS: FUROSEMIDE 40MG/4ML VIAL IVP SCH (10:58)
[2018-01-24] MEDS: CHOLECALCIFEROL (D3) 1000 UNIT TABLET PO SCH (10:58)
[2018-01-24] MEDS: DOCUSATE SODIUM 100MG CAPSULE PO SCH ×2 (10:59→18:34)
[2018-01-24] MEDS: CARVEDILOL 3.125 MG TABLET PO SCH ×2 (10:59→21:00)
[2018-01-24] MEDS: LAMOTRIGINE 100MG TABLET PO SCH ×2 (10:59→18:37)
[2018-01-24] MEDS: AMLODIPINE 10MG TABLET PO SCH (10:59)
[2018-01-24] MEDS: ASPIRIN 81MG TABLET PO SCH (11:00)
[2018-01-24] MEDS: PREDNISONE 20MG TABLET PO SCH (11:00)
[2018-01-24] MEDS: ENOXAPARIN 30MG/0.3ML SYR SUBCUT SCH ×2 (11:00→22:41)
[2018-01-24] MEDS: SPIRONOLACTONE 25MG TABLET PO SCH (11:01)
[2018-01-24 12:00] VITALS: BP 131/68
[2018-01-24 16:00] VITALS: BP 120/58
[2018-01-24] MEDS: DIGOXIN 125MCG TABLET PO SCH (18:34)
[2018-01-24 20:00] VITALS: BP 111/51
[2018-01-24] MEDS: RISPERIDONE 1MG TABLET PO SCH (22:41)
[2018-01-25] VITALS: BP 105/55
[2018-01-25] MEDS: IPRATROPIUM/ALBUTEROL 0.5-3(2.5)MG/3ML NEB HHN SCH ×6 (02:00→21:21)
[2018-01-25 04:00] VITALS: BP 120/68
[2018-01-25] MEDS: BLOOD SUGAR DIAGNOSTIC STRIP TEST SCH ×4 (05:59→21:00)
[2018-01-25] MEDS: INSULIN LISPRO 100 UNITS/ML SUBCUT SCH ×4 (05:59→22:04)
[2018-01-25 07:45] LABS: HEMATOCRIT. 45.7 % (36.0-48.0); HEMOGLOBIN. 14.8 g/dL (12.0-16.0); MEAN CORPUSCULAR HEMOGLOBIN 28.9 pg (28.0-32.0); MEAN PLATELET VOLUME 9.9 fl (7.4-10.4); PLATELET 244 x1000/uL (130-400); RED BLOOD CELL COUNT 5.14 mill/uL (4.2-5.4); RED CELL DISTRIBUTION WIDTH 22.1 % (11.6-14.6)
[2018-01-25 08:00] VITALS: BP 132/66
[2018-01-25 09:16] LABS: PLATELET ESTIMATE NORMAL
[2018-01-25] MEDS: CHOLECALCIFEROL (D3) 1000 UNIT TABLET PO SCH (09:55)
[2018-01-25] MEDS: ENOXAPARIN 30MG/0.3ML SYR SUBCUT SCH ×2 (09:55→22:02)
[2018-01-25] MEDS: FUROSEMIDE 40MG/4ML VIAL IVP SCH (09:55)
[2018-01-25] MEDS: SPIRONOLACTONE 25MG TABLET PO SCH (09:56)
[2018-01-25] MEDS: PREDNISONE 20MG TABLET PO SCH (09:56)
[2018-01-25] MEDS: DOCUSATE SODIUM 100MG CAPSULE PO SCH ×2 (09:56→17:33)
[2018-01-25] MEDS: CARVEDILOL 3.125 MG TABLET PO SCH ×2 (09:56→22:04)
[2018-01-25] MEDS: ASPIRIN 81MG TABLET PO SCH (09:56)
[2018-01-25] MEDS: AMLODIPINE 10MG TABLET PO SCH (09:56)
[2018-01-25] MEDS: LAMOTRIGINE 100MG TABLET PO SCH ×2 (09:57→17:33)
[2018-01-25] MEDS: INSULIN GLARGINE UD 100 UNITS/ML SYR SUBCUT SCH ×2 (10:00→22:07)
[2018-01-25 12:00] VITALS: BP 124/64
[2018-01-25 16:00] VITALS: BP 102/56
[2018-01-25] MEDS: DIGOXIN 125MCG TABLET PO SCH (17:33)
[2018-01-25 20:00] VITALS: BP 134/66
[2018-01-25] MEDS: BUDESONIDE 0.5MG/2ML NEB HHN SCH (21:21)
[2018-01-25] MEDS: RISPERIDONE 1MG TABLET PO SCH (22:03)
[2018-01-25] MEDS: ACETAMINOPHEN 650MG/20.3ML UDC GT PRN (23:36)
[2018-01-26] VITALS: BP 130/65
[2018-01-26] MEDS: IPRATROPIUM/ALBUTEROL 0.5-3(2.5)MG/3ML NEB HHN SCH ×6 (01:27→20:43)
[2018-01-26 04:00] VITALS: BP 133/65
[2018-01-26] MEDS: BLOOD SUGAR DIAGNOSTIC STRIP TEST SCH ×4 (06:19→21:19)
[2018-01-26] MEDS: INSULIN LISPRO 100 UNITS/ML SUBCUT SCH ×4 (06:20→21:00)
[2018-01-26 08:00] VITALS: BP 137/66
[2018-01-26] MEDS: BUDESONIDE 0.5MG/2ML NEB HHN SCH ×2 (09:09→20:43)
[2018-01-26] MEDS: AMLODIPINE 10MG TABLET PO SCH (10:15)
[2018-01-26] MEDS: LAMOTRIGINE 100MG TABLET PO SCH ×2 (10:15→17:25)
[2018-01-26] MEDS: FUROSEMIDE 40MG/4ML VIAL IVP SCH (10:15)
[2018-01-26] MEDS: CHOLECALCIFEROL (D3) 1000 UNIT TABLET PO SCH (10:15)
[2018-01-26] MEDS: SPIRONOLACTONE 25MG TABLET PO SCH (10:16)
[2018-01-26] MEDS: DOCUSATE SODIUM 100MG CAPSULE PO SCH ×2 (10:16→17:25)
[2018-01-26] MEDS: ASPIRIN 81MG TABLET PO SCH (10:16)
[2018-01-26] MEDS: CARVEDILOL 3.125 MG TABLET PO SCH ×2 (10:17→21:18)
[2018-01-26] MEDS: ENOXAPARIN 30MG/0.3ML SYR SUBCUT SCH ×2 (10:18→21:38)
[2018-01-26] MEDS: INSULIN GLARGINE UD 100 UNITS/ML SYR SUBCUT SCH ×2 (10:36→21:36)
[2018-01-26 12:00] VITALS: BP 103/53
[2018-01-26 16:00] VITALS: BP 100/45
[2018-01-26] MEDS: DIGOXIN 125MCG TABLET PO SCH (17:25)
[2018-01-26 20:00] VITALS: BP 110/62
[2018-01-26] MEDS: RISPERIDONE 1MG TABLET PO SCH (21:18)
[2018-01-27] VITALS: BP 158/53
[2018-01-27] MEDS: IPRATROPIUM/ALBUTEROL 0.5-3(2.5)MG/3ML NEB HHN SCH ×6 (01:05→20:27)
[2018-01-27 04:00] VITALS: BP 107/53
[2018-01-27] MEDS: BLOOD SUGAR DIAGNOSTIC STRIP TEST SCH ×4 (06:45→21:00)
[2018-01-27] MEDS: BUDESONIDE 0.5MG/2ML NEB HHN SCH ×2 (08:37→20:27)
[2018-01-27] MEDS: INSULIN GLARGINE UD 100 UNITS/ML SYR SUBCUT SCH ×2 (10:00→22:40)
[2018-01-27] MEDS: ASPIRIN 81MG TABLET PO SCH (10:35)
[2018-01-27] MEDS: FUROSEMIDE 40MG/4ML VIAL IVP SCH (10:35)
[2018-01-27] MEDS: LAMOTRIGINE 100MG TABLET PO SCH ×2 (10:35→19:25)
[2018-01-27] MEDS: CHOLECALCIFEROL (D3) 1000 UNIT TABLET PO SCH (10:35)
[2018-01-27] MEDS: DOCUSATE SODIUM 100MG CAPSULE PO SCH ×2 (10:35→19:25)
[2018-01-27] MEDS: ENOXAPARIN 30MG/0.3ML SYR SUBCUT SCH ×2 (10:36→22:27)
[2018-01-27] MEDS: CARVEDILOL 3.125 MG TABLET PO SCH ×2 (10:37→21:00)
[2018-01-27] MEDS: AMLODIPINE 10MG TABLET PO SCH (10:38)
[2018-01-27] MEDS: SPIRONOLACTONE 25MG TABLET PO SCH (10:38)
[2018-01-27 12:00] VITALS: BP 102/53
[2018-01-27 16:00] VITALS: BP 112/55
[2018-01-27 18:27] LABS: BASOPHILS % 0.2 % (0.0-2.0); HEMATOCRIT. 49.9 % (36.0-48.0); HEMOGLOBIN. 16.1 g/dL (12.0-16.0); MEAN CORPUSCULAR HEMOGLOBIN 28.8 pg (28.0-32.0); MEAN CORPUSCULAR VOLUME 89.5 fL (81.0-99.0); MEAN PLATELET VOLUME 10.1 fl (7.4-10.4); MONOCYTES % 11.9 % (2.0-8.0); NEUTROPHILS % 69.9 % (40.0-76.0); PLATELET 241 x1000/uL (130-400); RED BLOOD CELL COUNT 5.57 mill/uL (4.2-5.4); RED CELL DISTRIBUTION WIDTH 22.6 % (11.6-14.6)
[2018-01-27] MEDS: DIGOXIN 125MCG TABLET PO SCH (19:25)
[2018-01-27] MEDS: INSULIN LISPRO 100 UNITS/ML SUBCUT SCH ×2 (19:26→21:00)
[2018-01-27 20:00] VITALS: BP 108/56
[2018-01-27] MEDS: RISPERIDONE 1MG TABLET PO SCH (22:28)
[2018-01-28] VITALS: BP 114/60
[2018-01-28] MEDS: IPRATROPIUM/ALBUTEROL 0.5-3(2.5)MG/3ML NEB HHN SCH ×6 (00:28→20:12)
[2018-01-28 04:00] VITALS: BP 122/59
[2018-01-28] MEDS: BLOOD SUGAR DIAGNOSTIC STRIP TEST SCH ×4 (06:38→21:40)
[2018-01-28] MEDS: INSULIN LISPRO 100 UNITS/ML SUBCUT SCH ×4 (06:41→21:39)
[2018-01-28 08:00] VITALS: BP 107/59
[2018-01-28] MEDS: BUDESONIDE 0.5MG/2ML NEB HHN SCH ×2 (08:43→20:11)
[2018-01-28] MEDS: AMLODIPINE 10MG TABLET PO SCH (09:00)
[2018-01-28] MEDS: CARVEDILOL 3.125 MG TABLET PO SCH ×2 (09:00→21:38)
[2018-01-28] MEDS: FUROSEMIDE 40MG/4ML VIAL IVP SCH (09:27)
[2018-01-28] MEDS: LAMOTRIGINE 100MG TABLET PO SCH ×2 (09:27→17:51)
[2018-01-28] MEDS: ASPIRIN 81MG TABLET PO SCH (09:28)
[2018-01-28] MEDS: DOCUSATE SODIUM 100MG CAPSULE PO SCH ×2 (09:28→17:50)
[2018-01-28] MEDS: SPIRONOLACTONE 25MG TABLET PO SCH (09:28)
[2018-01-28] MEDS: CHOLECALCIFEROL (D3) 1000 UNIT TABLET PO SCH (09:28)
[2018-01-28] MEDS: ENOXAPARIN 30MG/0.3ML SYR SUBCUT SCH ×2 (09:30→21:37)
[2018-01-28] MEDS: INSULIN GLARGINE UD 100 UNITS/ML SYR SUBCUT SCH ×2 (11:19→21:40)
[2018-01-28 12:00] VITALS: BP 131/61
[2018-01-28 16:00] VITALS: BP 101/54
[2018-01-28] MEDS: DIGOXIN 125MCG TABLET PO SCH (17:51)
[2018-01-28 20:00] VITALS: BP 115/57
[2018-01-28] MEDS: RISPERIDONE 1MG TABLET PO SCH (21:37)
[2018-01-29] VITALS: BP 116/59
[2018-01-29] MEDS: IPRATROPIUM/ALBUTEROL 0.5-3(2.5)MG/3ML NEB HHN SCH ×7 (02:07→20:09)
[2018-01-29 04:00] VITALS: BP 125/59
[2018-01-29] MEDS: BLOOD SUGAR DIAGNOSTIC STRIP TEST SCH ×4 (06:22→21:00)
[2018-01-29] MEDS: INSULIN LISPRO 100 UNITS/ML SUBCUT SCH ×4 (06:35→21:00)
[2018-01-29 08:00] VITALS: BP 125/60
[2018-01-29 08:04] LABS: HEMATOCRIT. 44.2 % (36.0-48.0); HEMOGLOBIN. 14.6 g/dL (12.0-16.0); MEAN CORPUSCULAR HEMOGLOBIN 29.3 pg (28.0-32.0); MEAN CORPUSCULAR VOLUME 88.7 fL (81.0-99.0); PLATELET 249 x1000/uL (130-400); RED BLOOD CELL COUNT 4.98 mill/uL (4.2-5.4)
[2018-01-29] MEDS: CHOLECALCIFEROL (D3) 1000 UNIT TABLET PO SCH (10:03)
[2018-01-29] MEDS: ASPIRIN 81MG TABLET PO SCH (10:03)
[2018-01-29] MEDS: DOCUSATE SODIUM 100MG CAPSULE PO SCH ×2 (10:03→17:14)
[2018-01-29] MEDS: CARVEDILOL 3.125 MG TABLET PO SCH ×2 (10:03→20:42)
[2018-01-29] MEDS: LAMOTRIGINE 100MG TABLET PO SCH ×2 (10:03→17:14)
[2018-01-29] MEDS: FUROSEMIDE 20MG TABLET PO SCH (10:03)
[2018-01-29] MEDS: AMLODIPINE 10MG TABLET PO SCH (10:04)
[2018-01-29] MEDS: ENOXAPARIN 30MG/0.3ML SYR SUBCUT SCH ×2 (10:04→20:43)
[2018-01-29] MEDS: INSULIN GLARGINE UD 100 UNITS/ML SYR SUBCUT SCH ×2 (10:06→22:00)
[2018-01-29 12:00] VITALS: BP 130/61
[2018-01-29 14:13] LABS: PLATELET ESTIMATE NORMAL
[2018-01-29 16:00] VITALS: BP 124/67
[2018-01-29] MEDS: DIGOXIN 125MCG TABLET PO SCH (18:03)
[2018-01-29 20:00] VITALS: BP 106/44
[2018-01-29] MEDS: RISPERIDONE 1MG TABLET PO SCH (20:43)
[2018-01-30] VITALS: BP 113/50
[2018-01-30] MEDS: IPRATROPIUM/ALBUTEROL 0.5-3(2.5)MG/3ML NEB HHN SCH ×3 (00:38→20:43)
[2018-01-30 04:00] VITALS: BP 109/55
[2018-01-30] MEDS: INSULIN LISPRO 100 UNITS/ML SUBCUT SCH ×4 (07:02→21:00)
[2018-01-30] MEDS: BLOOD SUGAR DIAGNOSTIC STRIP TEST SCH ×4 (07:02→21:00)
[2018-01-30 08:00] VITALS: BP 122/54
[2018-01-30] MEDS: DOCUSATE SODIUM 100MG CAPSULE PO SCH ×2 (09:11→17:30)
[2018-01-30] MEDS: ASPIRIN 81MG TABLET PO SCH (09:11)
[2018-01-30] MEDS: CARVEDILOL 3.125 MG TABLET PO SCH ×2 (09:11→21:00)
[2018-01-30] MEDS: FUROSEMIDE 20MG TABLET PO SCH (09:12)
[2018-01-30] MEDS: AMLODIPINE 10MG TABLET PO SCH (09:12)
[2018-01-30] MEDS: ENOXAPARIN 30MG/0.3ML SYR SUBCUT SCH ×2 (09:12→21:07)
[2018-01-30] MEDS: LAMOTRIGINE 100MG TABLET PO SCH ×2 (09:12→17:30)
[2018-01-30] MEDS: CHOLECALCIFEROL (D3) 1000 UNIT TABLET PO SCH (09:12)
[2018-01-30] MEDS: INSULIN GLARGINE UD 100 UNITS/ML SYR SUBCUT SCH ×2 (09:13→21:18)
[2018-01-30 16:00] VITALS: BP 102/50
[2018-01-30 20:33] VITALS: BP 97/49
[2018-01-30] MEDS: DIGOXIN 125MCG TABLET PO SCH (21:07)
[2018-01-30] MEDS: RISPERIDONE 1MG TABLET PO SCH (21:07)
[2018-01-31 00:29] VITALS: BP 115/54
[2018-01-31] MEDS: IPRATROPIUM/ALBUTEROL 0.5-3(2.5)MG/3ML NEB HHN SCH ×7 (01:07→23:32)
[2018-01-31 04:00] VITALS: BP 102/54
[2018-01-31] MEDS: INSULIN LISPRO 100 UNITS/ML SUBCUT SCH ×4 (06:34→20:49)
[2018-01-31] MEDS: BLOOD SUGAR DIAGNOSTIC STRIP TEST SCH ×4 (06:34→20:29)
[2018-01-31 07:29] LABS: HEMATOCRIT. 42.2 % (36.0-48.0); HEMOGLOBIN. 13.7 g/dL (12.0-16.0); MEAN CORPUSCULAR HEMOGLOBIN 29.1 pg (28.0-32.0); MEAN CORPUSCULAR VOLUME 89.3 fL (81.0-99.0); MEAN PLATELET VOLUME 9.6 fl (7.4-10.4); PLATELET 261 x1000/uL (130-400); RED BLOOD CELL COUNT 4.72 mill/uL (4.2-5.4); RED CELL DISTRIBUTION WIDTH 22.8 % (11.6-14.6)
[2018-01-31 08:00] VITALS: BP 114/49
[2018-01-31] MEDS: LAMOTRIGINE 100MG TABLET PO SCH ×2 (09:00→17:00)
[2018-01-31] MEDS: AMLODIPINE 10MG TABLET PO SCH (09:00)
[2018-01-31] MEDS: FUROSEMIDE 20MG TABLET PO SCH (09:00)
[2018-01-31] MEDS: CARVEDILOL 3.125 MG TABLET PO SCH ×2 (09:00→20:38)
[2018-01-31 09:45] LABS: PLATELET ESTIMATE NORMAL
[2018-01-31] MEDS: ACETAMINOPHEN 650MG/20.3ML UDC GT PRN (11:07)
[2018-01-31] MEDS: ASPIRIN 81MG TABLET PO SCH (11:08)
[2018-01-31] MEDS: DOCUSATE SODIUM 100MG CAPSULE PO SCH ×2 (11:08→18:18)
[2018-01-31] MEDS: ENOXAPARIN 30MG/0.3ML SYR SUBCUT SCH ×2 (11:08→20:44)
[2018-01-31] MEDS: CHOLECALCIFEROL (D3) 1000 UNIT TABLET PO SCH (11:09)
[2018-01-31] MEDS: INSULIN GLARGINE UD 100 UNITS/ML SYR SUBCUT SCH ×2 (11:28→22:02)
[2018-01-31 12:00] VITALS: BP 108/58
[2018-01-31 16:00] VITALS: BP 110/52
[2018-01-31] MEDS: DIGOXIN 125MCG TABLET PO SCH (18:18)
[2018-01-31 20:00] VITALS: BP 109/53
[2018-01-31] MEDS: RISPERIDONE 1MG TABLET PO SCH (20:44)
[2018-02-01] VITALS: BP 117/58
[2018-02-01] MEDS: ACETAMINOPHEN 650MG/20.3ML UDC GT PRN ×2 (00:03→09:42)
[2018-02-01] MEDS: IPRATROPIUM/ALBUTEROL 0.5-3(2.5)MG/3ML NEB HHN SCH ×5 (02:37→20:29)
[2018-02-01 04:00] VITALS: BP 99/50
[2018-02-01] MEDS: INSULIN LISPRO 100 UNITS/ML SUBCUT SCH ×3 (06:22→21:36)
[2018-02-01] MEDS: BLOOD SUGAR DIAGNOSTIC STRIP TEST SCH ×2 (06:22→21:29)
[2018-02-01 07:34] LABS: HEMATOCRIT. 42.4 % (36.0-48.0); HEMOGLOBIN. 13.8 g/dL (12.0-16.0); MEAN CORPUSCULAR HEMOGLOBIN 29.1 pg (28.0-32.0); MEAN CORPUSCULAR VOLUME 89.5 fL (81.0-99.0); MEAN PLATELET VOLUME 9.9 fl (7.4-10.4); PLATELET 263 x1000/uL (130-400); RED BLOOD CELL COUNT 4.74 mill/uL (4.2-5.4); RED CELL DISTRIBUTION WIDTH 23.4 % (11.6-14.6)
[2018-02-01 07:59] LABS: CHLORIDE 104 mEq/L (98-107)
[2018-02-01 08:00] VITALS: BP 121/65
[2018-02-01] MEDS: CHOLECALCIFEROL (D3) 1000 UNIT TABLET PO SCH (09:25)
[2018-02-01] MEDS: FUROSEMIDE 20MG TABLET PO SCH (09:25)
[2018-02-01] MEDS: ASPIRIN 81MG TABLET PO SCH (09:25)
[2018-02-01] MEDS: AMLODIPINE 10MG TABLET PO SCH (09:25)
[2018-02-01] MEDS: LAMOTRIGINE 100MG TABLET PO SCH ×2 (09:25→17:34)
[2018-02-01] MEDS: DOCUSATE SODIUM 100MG CAPSULE PO SCH ×2 (09:25→17:34)
[2018-02-01] MEDS: ENOXAPARIN 30MG/0.3ML SYR SUBCUT SCH ×2 (09:33→21:28)
[2018-02-01] MEDS: CARVEDILOL 3.125 MG TABLET PO SCH ×2 (09:33→21:28)
[2018-02-01] MEDS: INSULIN GLARGINE UD 100 UNITS/ML SYR SUBCUT SCH ×2 (09:36→22:28)
[2018-02-01 12:00] VITALS: BP 117/60
[2018-02-01 13:17] LABS: PLATELET ESTIMATE NORMAL
[2018-02-01 16:00] VITALS: BP 120/62
[2018-02-01] MEDS: DIGOXIN 125MCG TABLET PO SCH (17:35)
[2018-02-01 20:00] VITALS: BP 118/58
[2018-02-01] MEDS: RISPERIDONE 1MG TABLET PO SCH (21:29)
[2018-02-02] VITALS: BP 100/53
[2018-02-02] MEDS: IPRATROPIUM/ALBUTEROL 0.5-3(2.5)MG/3ML NEB HHN SCH ×4 (00:35→21:16)
[2018-02-02 04:00] VITALS: BP 123/65
[2018-02-02] MEDS: BLOOD SUGAR DIAGNOSTIC STRIP TEST SCH ×4 (06:40→21:38)
[2018-02-02] MEDS: INSULIN LISPRO 100 UNITS/ML SUBCUT SCH ×4 (06:40→21:38)
[2018-02-02 08:00] VITALS: BP 122/65
[2018-02-02] MEDS: ASPIRIN 81MG TABLET PO SCH (08:26)
[2018-02-02] MEDS: LAMOTRIGINE 100MG TABLET PO SCH ×2 (08:26→17:22)
[2018-02-02] MEDS: DOCUSATE SODIUM 100MG CAPSULE PO SCH ×2 (08:26→17:22)
[2018-02-02] MEDS: CARVEDILOL 3.125 MG TABLET PO SCH ×2 (08:26→21:37)
[2018-02-02] MEDS: AMLODIPINE 10MG TABLET PO SCH (08:26)
[2018-02-02] MEDS: FUROSEMIDE 20MG TABLET PO SCH (08:26)
[2018-02-02] MEDS: CHOLECALCIFEROL (D3) 1000 UNIT TABLET PO SCH (08:26)
[2018-02-02] MEDS: ENOXAPARIN 30MG/0.3ML SYR SUBCUT SCH ×2 (08:27→21:36)
[2018-02-02] MEDS: INSULIN GLARGINE UD 100 UNITS/ML SYR SUBCUT SCH ×2 (10:23→22:38)
[2018-02-02] MEDS ORDERED: TRAMADOL 50MG TABLET PO PRN (11:00)
[2018-02-02 12:00] VITALS: BP 116/61
[2018-02-02 16:00] VITALS: BP 107/61
[2018-02-02] MEDS: DIGOXIN 125MCG TABLET PO SCH (17:22)
[2018-02-02] MEDS: ACETAMINOPHEN 650MG/20.3ML UDC GT PRN (19:42)
[2018-02-02 20:00] VITALS: BP 112/59
[2018-02-02] MEDS: RISPERIDONE 1MG TABLET PO SCH (21:36)
[2018-02-03] VITALS: BP 111/56
[2018-02-03] MEDS: IPRATROPIUM/ALBUTEROL 0.5-3(2.5)MG/3ML NEB HHN SCH ×6 (00:05→20:24)
[2018-02-03 04:00] VITALS: BP 104/53
[2018-02-03] MEDS: BLOOD SUGAR DIAGNOSTIC STRIP TEST SCH ×4 (06:07→20:33)
[2018-02-03] MEDS: INSULIN LISPRO 100 UNITS/ML SUBCUT SCH ×4 (06:24→20:33)
[2018-02-03 08:00] VITALS: BP 131/62
[2018-02-03] MEDS: CHOLECALCIFEROL (D3) 1000 UNIT TABLET PO SCH (09:29)
[2018-02-03] MEDS: ASPIRIN 81MG TABLET PO SCH (09:29)
[2018-02-03] MEDS: AMLODIPINE 10MG TABLET PO SCH (09:29)
[2018-02-03] MEDS: LAMOTRIGINE 100MG TABLET PO SCH ×2 (09:30→17:02)
[2018-02-03] MEDS: DOCUSATE SODIUM 100MG CAPSULE PO SCH ×2 (09:30→17:02)
[2018-02-03] MEDS: FUROSEMIDE 20MG TABLET PO SCH (09:30)
[2018-02-03] MEDS: ENOXAPARIN 30MG/0.3ML SYR SUBCUT SCH ×2 (09:31→20:36)
[2018-02-03] MEDS: INSULIN GLARGINE UD 100 UNITS/ML SYR SUBCUT SCH ×2 (09:46→22:14)
[2018-02-03 12:00] VITALS: BP 117/76
[2018-02-03] MEDS: CARVEDILOL 3.125 MG TABLET PO SCH ×2 (12:05→20:33)
[2018-02-03 16:00] VITALS: BP 108/55
[2018-02-03] MEDS: DIGOXIN 125MCG TABLET PO SCH (17:02)
[2018-02-03 20:00] VITALS: BP 103/52
[2018-02-03] MEDS: RISPERIDONE 1MG TABLET PO SCH (20:36)
[2018-02-04] VITALS: BP 122/58
[2018-02-04 04:00] VITALS: BP 118/60
[2018-02-04] MEDS: IPRATROPIUM/ALBUTEROL 0.5-3(2.5)MG/3ML NEB HHN SCH ×5 (04:45→19:51)
[2018-02-04] MEDS: BLOOD SUGAR DIAGNOSTIC STRIP TEST SCH ×4 (06:15→21:13)
[2018-02-04] MEDS: INSULIN LISPRO 100 UNITS/ML SUBCUT SCH ×4 (06:17→21:00)
[2018-02-04] MEDS: CHOLECALCIFEROL (D3) 1000 UNIT TABLET PO SCH (10:00)
[2018-02-04] MEDS: LAMOTRIGINE 100MG TABLET PO SCH ×2 (10:00→17:41)
[2018-02-04] MEDS: ASPIRIN 81MG TABLET PO SCH (10:00)
[2018-02-04] MEDS: FUROSEMIDE 20MG TABLET PO SCH (10:01)
[2018-02-04] MEDS: DOCUSATE SODIUM 100MG CAPSULE PO SCH ×2 (10:01→17:41)
[2018-02-04] MEDS: AMLODIPINE 10MG TABLET PO SCH (10:01)
[2018-02-04] MEDS: CARVEDILOL 3.125 MG TABLET PO SCH ×2 (10:02→21:00)
[2018-02-04] MEDS: ENOXAPARIN 30MG/0.3ML SYR SUBCUT SCH ×2 (10:08→21:13)
[2018-02-04] MEDS: INSULIN GLARGINE UD 100 UNITS/ML SYR SUBCUT SCH ×2 (10:15→22:30)
[2018-02-04 12:00] VITALS: BP 114/46
[2018-02-04 16:00] VITALS: BP 106/49
[2018-02-04] MEDS: DIGOXIN 125MCG TABLET PO SCH (17:41)
[2018-02-04 20:00] VITALS: BP 109/60
[2018-02-04] MEDS: RISPERIDONE 1MG TABLET PO SCH (21:12)
[2018-02-05] VITALS: BP 144/57
[2018-02-05] MEDS: IPRATROPIUM/ALBUTEROL 0.5-3(2.5)MG/3ML NEB HHN SCH ×5 (00:20→16:42)
[2018-02-05 04:00] VITALS: BP 129/59
[2018-02-05] MEDS: BLOOD SUGAR DIAGNOSTIC STRIP TEST SCH ×3 (06:10→17:03)
[2018-02-05] MEDS: INSULIN LISPRO 100 UNITS/ML SUBCUT SCH ×3 (06:10→17:03)
[2018-02-05 06:47] LABS: BASOPHILS % 0.4 % (0.0-2.0); EOSINOPHILS % 2.2 % (0.0-5.0); HEMATOCRIT. 39.8 % (36.0-48.0); HEMOGLOBIN. 13.2 g/dL (12.0-16.0); LYMPHOCYTES % 21.4 % (20.0-50.0); MEAN CORPUSCULAR HEMOGLOBIN 29.6 pg (28.0-32.0); MEAN CORPUSCULAR VOLUME 89.3 fL (81.0-99.0); MONOCYTES % 11.6 % (2.0-8.0); NEUTROPHILS % 64.4 % (40.0-76.0); PLATELET 269 x1000/uL (130-400); RED BLOOD CELL COUNT 4.46 mill/uL (4.2-5.4); RED CELL DISTRIBUTION WIDTH 23.4 % (11.6-14.6)
[2018-02-05 07:08] LABS: CHLORIDE 107 mEq/L (98-107)
[2018-02-05 08:00] VITALS: BP 121/56
[2018-02-05] MEDS: DOCUSATE SODIUM 100MG CAPSULE PO SCH ×2 (08:57→17:04)
[2018-02-05] MEDS: FUROSEMIDE 20MG TABLET PO SCH (08:57)
[2018-02-05] MEDS: ASPIRIN 81MG TABLET PO SCH (08:57)
[2018-02-05] MEDS: AMLODIPINE 10MG TABLET PO SCH (08:58)
[2018-02-05] MEDS: CARVEDILOL 3.125 MG TABLET PO SCH (08:58)
[2018-02-05] MEDS: ENOXAPARIN 30MG/0.3ML SYR SUBCUT SCH (08:59)
[2018-02-05] MEDS: LAMOTRIGINE 100MG TABLET PO SCH ×2 (08:59→17:04)
[2018-02-05] MEDS: CHOLECALCIFEROL (D3) 1000 UNIT TABLET PO SCH (08:59)
[2018-02-05] MEDS: INSULIN GLARGINE UD 100 UNITS/ML SYR SUBCUT SCH (09:44)
[2018-02-05 12:00] VITALS: BP 127/58
[2018-02-05 16:00] VITALS: BP 103/47
[2018-02-05 16:37] VITALS: BP 106/55
== END 2018-02-05 18:40 | DRG 469 ==
LOC: ER 15:52 → 5WST 16:09 → EDBEDREQ 18:48 → ENRESERV 20:33
PROVIDERS: ADMIT Internal Medicine; ATTEND Internal Medicine
DX: N17.0 Acute kidney failure with tubular necrosis (principal); J96.21 Acute and chronic respiratory failure with hypoxia; E43 Unspecified severe protein-calorie malnutrition; I50.43 Acute on chronic combined systolic (congestive) and diastolic (congestive) heart failure; I27.29 Other secondary pulmonary hypertension; E66.01 Morbid (severe) obesity due to excess calories; E11.36 Type 2 diabetes mellitus with diabetic cataract; J44.1 Chronic obstructive pulmonary disease with (acute) exacerbation; J45.901 Unspecified asthma with (acute) exacerbation; E11.42 Type 2 diabetes mellitus with diabetic polyneuropathy; F17.210 Nicotine dependence, cigarettes, uncomplicated; I87.2 Venous insufficiency (chronic) (peripheral); E11.51 Type 2 diabetes mellitus with diabetic peripheral angiopathy without gangrene; E11.622 Type 2 diabetes mellitus with other skin ulcer; E87.2 Acidosis; I11.0 Hypertensive heart disease with heart failure; F14.10 Cocaine abuse, uncomplicated; I25.10 Atherosclerotic heart disease of native coronary artery without angina pectoris; I27.81 Cor pulmonale (chronic); R26.9 Unspecified abnormalities of gait and mobility; I34.0 Nonrheumatic mitral (valve) insufficiency; I42.9 Cardiomyopathy, unspecified; L97.919 Non-pressure chronic ulcer of unspecified part of right lower leg with unspecified severity; L97.929 Non-pressure chronic ulcer of unspecified part of left lower leg with unspecified severity; Z79.82 Long term (current) use of aspirin; Z79.84 Long term (current) use of oral hypoglycemic drugs; Z79.899 Other long term (current) drug therapy; I25.2 Old myocardial infarction; Z86.73 Personal history of transient ischemic attack (TIA), and cerebral infarction without residual deficits; Z99.81 Dependence on supplemental oxygen; Z68.35 Body mass index [BMI] 35.0-35.9, adult; Z71.6 Tobacco abuse counseling
CPT/HCPCS: 36415; 36600; 71045; 80048; 80162; 80305; 82375; 82805; 82962; 83605; 83880; 84484; 87077; 92610; 93005; 94640; 96365; 96366; 96368; 96375; 97110; 97116; 97162; 97530; 99291; A6261; C1893; G0482; J1650; J1815; J1940; J1956; J2920; J2930; J3475; J7512; J7620; J7626; A4315